=== PATIENT | female | born 1975 | race Two or more races ===

== ENCOUNTER 2019-01-06 18:19 | Emergency (ER) | payer MEDICAID ==
[~2019-01-06] VITALS: Ht 165.1 cm; Wt 72.6 kg
[2019-01-06] MEDS ORDERED: CLINDAMYCIN HCL 150 MG CAP PO ONE (20:15)
[2019-01-06 21:19] VITALS: BP 125/71
== END 2019-01-06 21:18 | disposition home or self-care (01) ==
LOC: ER 18:29
DX: L02.11 Cutaneous abscess of neck (principal)

== ENCOUNTER 2023-07-23 18:13 | Inpatient (IN) | payer MEDICAID ==
[~2023-07-23] VITALS: Ht 160 cm; Wt 58.1 kg
[~2023-07-23 18:13] MED LIST: LACT10SO3 PO; SODIENE35 RE
[2023-07-23 19:07] LABS: Urine Amorphous Crystal FEW /hpf (None Seen); Urine Bacteria FEW /hpf (None Seen); Urine Blood 1+ /uL (Negative); Urine Clarity HAZY (Clear); Urine Color Yellow (Yellow); Urine Mucus MODERATE (None Seen); Urine Protein, UAD 1+ (Negative); Urine Specific Gravity 1.032 (1.001-1.035); Urine Urobilinogen Normal (Negative); Urine WBC 5 /hpf (0 - 5)
[2023-07-23 19:57] LABS: Basophils # (auto) 0 10 ^3/uL (0-0.2); Basophils % (auto) 0.6 % (0.0-2.0); Eosinophils # (auto) 0.2 10 ^3/uL (0-0.8); Eosinophils % (auto) 2.7 % (0.0-7.0); Hematocrit 35.7 % (36.0-46.0); Hemoglobin 11.3 g/dL (12.2-16.2); Lymphocytes # (auto) 1.7 10 ^3/uL (0.4-5.4); Mean Corpuscular Hemoglobin 25.4 pg (28.0-32.0); Mean Corpuscular Hgb Conc. 31.8 g/dL (32.0-36.0); Mean Corpuscular Volume 79.9 fL (80.0-100.0); Monocytes # (auto) 0.5 10 ^3/uL (0-1.3); Monocytes % (auto) 6.6 % (0.0-12.0); Neutrophils # (auto) 5.4 10 ^3/uL (1.6-8.6); Neutrophils % (auto) 68.1 % (37.0-80.0); Nucleated Red Blood Cells % 0.1 %; Red Blood Cells 4.46 10^6/uL (4.0-5.20); Red Cell Distribution Width 15.7 % (11.8-14.3); White Blood Cell 7.9 10^3/uL (4.4-10.8)
[2023-07-23 20:09] LABS: Chloride 106 mmol/L (98-107); Potassium 3.6 mmol/L (3.5-5.1); Sodium 140 mmol/L (136-145)
[2023-07-23 20:10] LABS: Anion Gap 7 (5-15); Calcium 8.6 mg/dL (8.7-10.4); Carbon Dioxide 27 mmol/L (20-30)
[2023-07-23 20:15] LABS: BUN/Creatinine Ratio 16.1 (10.0-20.0); Blood Urea Nitrogen 9 mg/dL (9-23); Glucose 94 mg/dL (74-106)
[2023-07-23] MEDS: KETOROLAC TROMETH 30 MG/ML 1ML VIAL IM ONE (23:40)
[2023-07-24] MEDS ORDERED: ACETAMINOPHEN 325 MG TAB PO PRN (02:45)
[2023-07-24 03:08] LABS: Alanine Aminotransferase 46 U/L (7-40); Albumin 4.1 g/dL (3.2-4.8); Alkaline Phosphatase 179 U/L (46-116); Aspartate Aminotransferase 37 U/L (13-40); Lipase 58 U/L (12-53)
[2023-07-24 03:09] LABS: Bilirubin, Total 0.3 mg/dL (0.2-1.0); Total Protein 7.2 g/dL (5.7-8.2)
[2023-07-24] MEDS: cefTRIAXone 1GM/50ML D5W 50 ML IV ONE (03:20)
[2023-07-24 03:32] LABS: Bilirubin, Direct < 0.1 mg/dL (<0.3)
[2023-07-24 04:00] VITALS: PULSE 74; RESP 20; O2SAT 95
[2023-07-24 09:30] VITALS: PULSE 84; RESP 19; O2SAT 99
[2023-07-24] MEDS: FERROUS SULFATE 325mg EC TAB PO SCH (11:38)
[2023-07-24] MEDS: PANTOPRAZOLE 40 MG/10 ML VIAL INJ IV ONE (12:07)
[2023-07-24] MEDS: HYDROcodone-ACET 5/325MG TAB PO PRN (12:08)
[2023-07-24 12:51] LABS: INR 1.04 (0.9-1.15); Prothrombin Time 10.9 sec (9.3-11.8)
[2023-07-24] MEDS: ONDANSETRON HCL 4 MG/2 ML VIAL IV PRN (14:48)
[2023-07-24 14:50] VITALS: RESP 18
[2023-07-24] MEDS ORDERED: NAP500T PO (15:29)
[2023-07-24] MEDS ORDERED: OMEP20TA PO (15:29)
[2023-07-24 17:00] VITALS: BP 129/77; PULSE 90; RESP 18; TEMP 97.6; O2SAT 97
[2023-07-24] MEDS: MORPHINE SULFATE INJ 2 MG/ml SYRG IV PRN (20:40)
[2023-07-24 22:00] VITALS: BP 131/79; PULSE 87; RESP 17; TEMP 98.1; O2SAT 94
[2023-07-25] VITALS (7 sets, daily range): BP systolic 116–129; BP diastolic 68–90; PULSE 92–105; RESP 16–20; TEMP 97.5–98.4; O2SAT 92–97
[2023-07-25 05:10] LABS: Basophils # (auto) 0.1 10 ^3/uL (0-0.2); Basophils % (auto) 0.8 % (0.0-2.0); Eosinophils # (auto) 0.2 10 ^3/uL (0-0.8); Eosinophils % (auto) 2.7 % (0.0-7.0); Hematocrit 36.7 % (36.0-46.0); Hemoglobin 11.7 g/dL (12.2-16.2); Lymphocytes # (auto) 1.3 10 ^3/uL (0.4-5.4); Lymphocytes % (auto) 15.7 % (10.0-50.0); Mean Corpuscular Hemoglobin 25.7 pg (28.0-32.0); Mean Corpuscular Volume 80.4 fL (80.0-100.0); Monocytes # (auto) 0.4 10 ^3/uL (0-1.3); Monocytes % (auto) 5.2 % (0.0-12.0); Neutrophils # (auto) 6.1 10 ^3/uL (1.6-8.6); Neutrophils % (auto) 75.6 % (37.0-80.0); Red Blood Cells 4.56 10^6/uL (4.0-5.20); Red Cell Distribution Width 15.4 % (11.8-14.3); White Blood Cell 8.1 10^3/uL (4.4-10.8)
[2023-07-25 05:21] LABS: % Iron Saturation 8.9 % (15-50)
[2023-07-25 05:25] LABS: Alanine Aminotransferase 281 U/L (7-40); Albumin 3.6 g/dL (3.2-4.8); Alkaline Phosphatase 425 U/L (46-116); Anion Gap 10 (5-15); BUN/Creatinine Ratio 17.6 (10.0-20.0); Blood Urea Nitrogen 9 mg/dL (9-23); Calcium 8.3 mg/dL (8.7-10.4); Carbon Dioxide 24 mmol/L (20-30); Chloride 106 mmol/L (98-107); Glucose 85 mg/dL (74-106); Sodium 140 mmol/L (136-145)
[2023-07-25 05:26] LABS: Aspartate Aminotransferase 454 U/L (13-40); Bilirubin, Total 1.1 mg/dL (0.2-1.0); Total Protein 6.3 g/dL (5.7-8.2)
[2023-07-25] MEDS ORDERED: LIDOCAINE VISCOUS 2% 15ML UD ONE (08:12)
[2023-07-25] MEDS ORDERED: NALOXONE HCL 0.4 MG/ML VIAL ONE (08:12)
[2023-07-25] MEDS ORDERED: SODIUM CHLORIDE LOCK 10 ML ONE (08:12)
[2023-07-25] MEDS ORDERED: FLUMAZENIL 0.1 MG/ML INJ 10ML MDV IV ONE (08:12)
[2023-07-25] MEDS ORDERED: diphenhdrAMINE HCL 50 MG/1 ML VL ONE (08:13)
[2023-07-25] MEDS ORDERED: fentaNYL CITRATE 100 MCG/2 ML VL ONE (08:13)
[2023-07-25] MEDS ORDERED: MIDAZOLAM HCL 5 MG/ML-1ML VIAL ONE (08:13)
[2023-07-25] MEDS: PANTOPRAZOLE 40 MG TAB PO SCH (12:55)
[2023-07-26] VITALS (8 sets, daily range): BP systolic 119–133; BP diastolic 74–86; PULSE 85–104; RESP 15–20; TEMP 97.7–98.2; O2SAT 90–100
[2023-07-26] MEDS ORDERED: SODIUM CHLORIDE LOCK 10 ML ONE (12:05)
[2023-07-26] MEDS: LIDOCAINE VISCOUS 2% 15ML UD ONE (14:03)
[2023-07-26] MEDS: MIDAZOLAM HCL 5 MG/ML-1ML VIAL ONE (14:07)
[2023-07-26] MEDS: fentaNYL CITRATE 100 MCG/2 ML VL ONE (14:07)
[2023-07-26] MEDS: diphenhdrAMINE HCL 50 MG/1 ML VL ONE (14:07)
[2023-07-26] MEDS: SUCRALFATE 1 GM/10 ML ORAL SUSP PO SCH (17:38)
[2023-07-26] MEDS: PANTOPRAZOLE 40 MG/10 ML VIAL INJ IV SCH (22:13)
[2023-07-27 05:00] VITALS: BP 117/78; PULSE 96; RESP 17; TEMP 97.8; O2SAT 93
[2023-07-27] MEDS: LIDOCAINE 2% (LOCAL ANESTH.) PF 5ml SDV ONE (07:55)
[2023-07-27 08:30] VITALS: BP 114/68; PULSE 96; RESP 16; TEMP 98.3; O2SAT 92
[2023-07-27 12:25] VITALS: BP 126/80; PULSE 102; RESP 20; TEMP 98.1; O2SAT 96
[2023-07-27 16:30] VITALS: BP 129/84; PULSE 104; RESP 18; TEMP 98.4; O2SAT 92
[2023-07-27] MEDS: Ensure HIGH Protein Chocolate 8oz Bottle PO SCH (18:39)
[2023-07-27 22:00] VITALS: BP 114/78; PULSE 105; RESP 17; TEMP 98.5; O2SAT 91
[2023-07-28 05:00] VITALS: BP 137/89; PULSE 92; RESP 18; TEMP 98.1; O2SAT 100
[2023-07-28 08:00] VITALS: PULSE 101; RESP 18; O2SAT 93
[2023-07-28 09:00] VITALS: BP 133/88; PULSE 101; RESP 18; TEMP 97.1; O2SAT 91
[2023-07-28 12:44] VITALS: BP 143/90; PULSE 99; RESP 18; TEMP 98.1; O2SAT 93
[2023-07-28 16:51] VITALS: BP 138/88; PULSE 99; RESP 18; TEMP 98.2; O2SAT 93
[2023-07-28 22:00] VITALS: BP 93/58; PULSE 104; RESP 19; TEMP 98.4; O2SAT 91
[2023-07-29 05:00] VITALS: BP_SYST 82; BP_SYST 92; BP_DIAS 39; BP_DIAS 54; PULSE 94; RESP 17; TEMP 97.9; O2SAT 90
[2023-07-29 13:00] VITALS: BP 130/73; PULSE 97; RESP 19; TEMP 98.2; O2SAT 93
[2023-07-29] MEDS: IOHEXOL 300 MG/ML 100ML BOTTLE IJ ONE (14:39)
[2023-07-29 17:00] VITALS: BP 114/76; PULSE 94; RESP 20; TEMP 98.4; O2SAT 98
[2023-07-29 22:00] VITALS: BP 137/83; PULSE 100; RESP 19; TEMP 97.2; O2SAT 91
[2023-07-30 05:00] VITALS: BP 107/76; PULSE 95; RESP 19; TEMP 98.5; O2SAT 93
[2023-07-30 06:02] LABS: Basophils # (auto) 0.1 10 ^3/uL (0-0.2); Basophils % (auto) 0.8 % (0.0-2.0); Eosinophils # (auto) 0.2 10 ^3/uL (0-0.8); Hematocrit 36.1 % (36.0-46.0); Hemoglobin 11.7 g/dL (12.2-16.2); Lymphocytes # (auto) 1.1 10 ^3/uL (0.4-5.4); Lymphocytes % (auto) 14.8 % (10.0-50.0); Mean Corpuscular Hemoglobin 26.1 pg (28.0-32.0); Mean Corpuscular Hgb Conc. 32.4 g/dL (32.0-36.0); Mean Corpuscular Volume 80.6 fL (80.0-100.0); Monocytes # (auto) 0.5 10 ^3/uL (0-1.3); Monocytes % (auto) 6.3 % (0.0-12.0); Neutrophils # (auto) 5.9 10 ^3/uL (1.6-8.6); Neutrophils % (auto) 76.1 % (37.0-80.0); Red Blood Cells 4.47 10^6/uL (4.0-5.20); Red Cell Distribution Width 16.2 % (11.8-14.3); White Blood Cell 7.8 10^3/uL (4.4-10.8)
[2023-07-30 06:06] LABS: INR 1.06 (0.9-1.15); Partial Thromboplastin Time 28.2 SEC (24.5-34.5); Prothrombin Time 11.1 sec (9.3-11.8)
[2023-07-30 06:12] LABS: Alanine Aminotransferase 341 U/L (7-40); Alkaline Phosphatase 434 U/L (46-116); Calcium 8.5 mg/dL (8.7-10.4); Carbon Dioxide 30 mmol/L (20-30); Chloride 102 mmol/L (98-107); Glucose 105 mg/dL (74-106); Potassium 2.9 mmol/L (3.5-5.1)
[2023-07-30 06:13] LABS: Albumin 3.5 g/dL (3.2-4.8); Anion Gap 10 (5-15); Aspartate Aminotransferase 327 U/L (13-40); BUN/Creatinine Ratio 19.6 (10.0-20.0); Bilirubin, Total 1.1 mg/dL (0.2-1.0); Blood Urea Nitrogen 11 mg/dL (9-23); Sodium 142 mmol/L (136-145); Total Protein 6.4 g/dL (5.7-8.2)
[2023-07-30 07:30] VITALS: PULSE 86
[2023-07-30 09:00] VITALS: BP 129/79; PULSE 83; RESP 16; TEMP 97.9; O2SAT 99
[2023-07-30 13:00] VITALS: BP 105/71; PULSE 94; RESP 17; TEMP 97.8; O2SAT 93
[2023-07-30] MEDS: GADOTERATE MEG 10 MMOL/20ml INJ (0.5MMOL/ml) IV ONE (14:43)
[2023-07-30 17:00] VITALS: BP 123/79; PULSE 93; RESP 20; TEMP 97.9; O2SAT 95
[2023-07-30] MEDS: MORPHINE SULF 30 mg ER tab PO SCH (21:40)
[2023-07-30 22:00] VITALS: BP 116/75; PULSE 109; RESP 18; TEMP 98; O2SAT 94
[2023-07-31 05:00] VITALS: BP 107/67; PULSE 103; RESP 16; TEMP 98.2; O2SAT 96
[2023-07-31 08:00] VITALS: PULSE 103
[2023-07-31 09:00] VITALS: BP 118/76; PULSE 83; RESP 18; TEMP 98; O2SAT 98
[2023-07-31 12:36] VITALS: BP 116/73; PULSE 86; RESP 18; TEMP 98; O2SAT 97
[2023-07-31 17:05] VITALS: BP 112/75; PULSE 88; RESP 18; TEMP 98; O2SAT 97
[2023-07-31 22:00] VITALS: BP 120/63; PULSE 101; RESP 18; TEMP 98.2; O2SAT 94
[2023-08-01] VITALS (8 sets, daily range): BP systolic 109–119; BP diastolic 67–81; PULSE 83–105; RESP 15–17; TEMP 97.4–98.1; O2SAT 93–96
[2023-08-01] MEDS ORDERED: HYDR-4902 PO (11:42)
[2023-08-01] MEDS ORDERED: SUCR1TAB22 OR (11:42)
[2023-08-01] MEDS ORDERED: ZOFR4T PO (11:42)
[2023-08-01] MEDS ORDERED: PANT40T PO (11:42)
[2023-08-01] MEDS ORDERED: MORP-110 PO (11:42)
[2023-08-01] MEDS: fentaNYL CITRATE 100 MCG/2 ML VL ONE (14:08)
[2023-08-01] MEDS: LIDOCAINE 2%HCL (LOCAL ANESTH.) INJ 20ML MDV ONE ×2 (14:09→15:13)
[2023-08-01] MEDS: MIDAZOLAM HCL 2MG/2ML 2ml VIAL (1mg/ml) ONE (14:09)
[2023-08-01] MEDS: ceFAZolin 1GM/50ML 50 ML IV ONE (14:10)
[2023-08-01] MEDS: HEPARIN 1,000 UNITS/ml 1ML VIAL ONE (16:50)
[2023-08-02 05:00] VITALS: BP 119/76; PULSE 85; RESP 17; TEMP 98.3; O2SAT 95
[2023-08-02 07:30] VITALS: TEMP 36.8
[2023-08-02 08:00] VITALS: PULSE 89; RESP 18; O2SAT 95
[2023-08-02 09:00] VITALS: BP 115/66; PULSE 89; RESP 18; TEMP 98.1; O2SAT 95
[2023-08-02 12:09] LABS: Base Excess 3.8 mmol/L (-2.0-2.0)
[2023-08-02 13:00] VITALS: BP 106/60; PULSE 99; RESP 18; TEMP 98.1
[2023-08-02] MEDS: HYDROcodone-ACET 5/325MG TAB PO ONE (13:07)
[2023-08-02 17:00] VITALS: BP 121/76; PULSE 90; RESP 18; TEMP 97.8; O2SAT 94
== END 2023-08-02 22:43 | disposition home or self-care (01) | DRG 240 ==
LOC: ER 18:13 → OVERFLOW 07-24 02:44 → WEST WING 07-24 02:44
PROVIDERS: ADMIT Nurse Practitioner; ATTEND Family Medicine
PROC: 0WB8XZX Excision of Chest Wall, External Approach, Diagnostic (ICD-10-PCS; 2023-07-25)
PROC: 0HBT3ZX Excision of Right Breast, Percutaneous Approach, Diagnostic (ICD-10-PCS; 2023-07-25)
PROC: 0DB78ZX Excision of Stomach, Pylorus, Via Natural or Artificial Opening Endoscopic, Diagnostic (ICD-10-PCS; 2023-07-26)
PROC: 0DB48ZX Excision of Esophagogastric Junction, Via Natural or Artificial Opening Endoscopic, Diagnostic (ICD-10-PCS; 2023-07-26)
PROC: 0DB68ZZ Excision of Stomach, Via Natural or Artificial Opening Endoscopic (ICD-10-PCS; 2023-07-26)
PROC: 0DB98ZX Excision of Duodenum, Via Natural or Artificial Opening Endoscopic, Diagnostic (ICD-10-PCS; principal; 2023-07-26 13:57)
PROC: 0JH63XZ Insertion of Tunneled Vascular Access Device into Chest Subcutaneous Tissue and Fascia, Percutaneous Approach (ICD-10-PCS; 2023-08-01)
PROC: 02HV33Z Insertion of Infusion Device into Superior Vena Cava, Percutaneous Approach (ICD-10-PCS; 2023-08-01)
PROC: B5181ZA Fluoroscopy of Superior Vena Cava using Low Osmolar Contrast, Guidance (ICD-10-PCS; 2023-08-01)
PROC: B548ZZA Ultrasonography of Superior Vena Cava, Guidance (ICD-10-PCS; 2023-08-01)
DX: C16.9 Malignant neoplasm of stomach, unspecified (principal); K85.90 Acute pancreatitis without necrosis or infection, unspecified; E43 Unspecified severe protein-calorie malnutrition; C78.4 Secondary malignant neoplasm of small intestine; E88.A Wasting disease (syndrome) due to underlying condition; E88.09 Other disorders of plasma-protein metabolism, not elsewhere classified; N39.0 Urinary tract infection, site not specified; K59.00 Constipation, unspecified; K29.50 Unspecified chronic gastritis without bleeding; D50.9 Iron deficiency anemia, unspecified; K21.9 Gastro-esophageal reflux disease without esophagitis; K31.9 Disease of stomach and duodenum, unspecified; Z90.49 Acquired absence of other specified parts of digestive tract; Z68.22 Body mass index [BMI] 22.0-22.9, adult; G89.3 Neoplasm related pain (acute) (chronic)
CPT/HCPCS: 36415; 36558; 36600; 43239; 71260; 74177; 74183; 76642; 76830; 76856; 76937; 76942; 77001; 80048; 80053; 80076; 81001; 81025; 82105; 82378; 82728; 82805; 83540; 83550; 83690; 84702; 85025; 85610; 85730; 86300; 86301; 86304; 86850; 86900; 86901; 99152; C1894; C9113; G0378; J1885; J2001; J2250; J2405